=== PATIENT | female | born 1950 | race African-American/Black ===

== ENCOUNTER 2017-07-12 09:30 | Inpatient (IN) | payer MEDICARE ==
[2017-07-12 10:31] VITALS: BMI 41.9
[2017-07-20] MEDS ORDERED: Fentanyl 100 MCG/2 ML VIAL ONE ×4 (12:06→15:53)
[2017-07-20] MEDS ORDERED: Midazolam HCl 2 mg/2 ml Vial ONE (12:06)
[2017-07-20] MEDS ORDERED: ADMIXTURE FEE IVPB SCH (12:15)
[2017-07-20] MEDS ORDERED: SODIUM CHLORIDE IVPB SCH (12:15)
[2017-07-20] MEDS ORDERED: VANCOMYCIN HCL IVPB SCH (12:15)
[2017-07-20] MEDS ORDERED: traMADol HCl 50 MG TAB PO PRN (12:20)
[2017-07-20] MEDS ORDERED: Zolpidem Tartrate 5 MG TAB PO PRN (12:20)
[2017-07-20] MEDS ORDERED: Promethazine HCl 25 MG/ML VIAL IM PRN ×2 (12:20→15:19)
[2017-07-20] MEDS ORDERED: Fentanyl 100 MCG/2 ML VIAL SLOW IVP PRN (12:20)
[2017-07-20] MEDS ORDERED: Ropivacaine 0.2% 550 ML 550 ML NERVE BLCK SCH (12:20)
[2017-07-20] MEDS ORDERED: Ondansetron HCl/PF 4 MG/2 ML Vial IVP PRN ×2 (12:20→15:19)
[2017-07-20] MEDS ORDERED: HYDROcodone/Acetaminophen 10/325 mg Tablet PO PRN (12:20)
[2017-07-20] MEDS ORDERED: PHENYLEPHRINE-NS 100 MCG/ML 10 ML SYRINGE ONE (13:23)
[2017-07-20] MEDS ORDERED: Ondansetron HCl/PF 4 MG/2 ML Vial ONE (13:23)
[2017-07-20] MEDS ORDERED: ePHEDrine/0.9% NaCl/PF SYRINGE 50 mg/10 ml ONE (13:23)
[2017-07-20] MEDS ORDERED: diphenhydrAMINE HCl 50 MG/ML 1 ML VIAL ONE (13:23)
[2017-07-20] MEDS ORDERED: Lidocaine 1% PF 5 ML VIAL ONE (13:23)
[2017-07-20] MEDS ORDERED: Propofol 200 MG/20 ML VIAL ONE (13:23)
[2017-07-20] MEDS ORDERED: Torsemide 20 MG TAB PO SCH (14:45)
[2017-07-20] MEDS ORDERED: Gabapentin 300 MG CAP PO PRN (14:45)
[2017-07-20] MEDS ORDERED: Acetaminophen 1,000 MG in Premix Bag 1 BAG IVPB SCH (15:15)
[2017-07-20] MEDS ORDERED: Promethazine HCl 25 MG/ML VIAL SLOW IVP PRN (15:19)
[2017-07-20] MEDS ORDERED: Ketorolac Tromethamine 30 MG/ML VIAL ONE (15:26)
--- NOTE | 2017-07-20 16:23 | RAD ---
LEFT KNEE TWO VIEWS: History: Post op evaluation. IMPRESSION: Patient is post total knee replacement. The prosthetic components appear in good position and alignm ent. Post op changes are noted. POS: DARIEL
--- NOTE | 2017-07-20 17:19 | OP ---
DATE OF SURGERY: 07/20/2017 PREOPERATIVE DIAGNOSIS: Left knee osteoarthritis. POSTOPERATIVE DIAGNOSIS: Left knee osteoarthritis. SURGICAL PROCEDURE: Left total knee arthroplasty. ANESTHESIA: General. SURGEON: Salbador Guadarrama M.D. RUG CLEANER HAND: Aneesh Garrett PA-C TOURNIQUET TIME: Approximately 75 minutes at 350 mmHg. ESTIMATED BLOOD LOSS: 50 mL IMPLANTS: DePuy Sigma system was used with a size 4 narrow femur, size 3 tibia, and 8 mm poly inser t, and a 35 mm all-poly patellar button. COMPLICATIONS: None. DRAINS: None. SPECIMEN: None. OUTCOME: Satisfactory. INDICATIONS: Patient is a pleasant 67-year-old lady, who is now status post right total knee arthro plasty and doing very well from the surgery. She has known severe medial compartment osteoarthritis on the left side as well in addition to the anterior compartment degenerative changes. After discu ssion with patient including risks and benefits, we have decided to proceed with left total knee art hroplasty. DESCRIPTION OF PROCEDURE: The patient was brought to the operating room and a timeout performed and then general anesthesia induced. The patient did have a nerve block inserted prior to surgery. Ne xt, the patient was positioned supine on the OR table and then a sterile prep and drape performed of the left lower extremity. The limb was exsanguinated with Esmarch bandage, tourniquet inflated to 350 mmHg. A midline anterior knee incision was made followed by medial parapatellar arthrotomy. Th e patella was inverted and remnants of the prepatellar fat pad and meniscus were excised along with the ACL. Next, a step drill was used to obtain a starting point of the distal femur. Intramedullar y alignment then performed to pin the initial distal femoral cutting jig to the anterior femur. Nex t, a distal femoral cut performed. This was followed by pinning of the sizing block to the distal f emur and it was sized to a size 4 narrow. This was then followed by insertion of the four-in-one cu tting block. Final cuts were then performed with an excellent resection and good alignment. Next, intramedullary alignment again used on the tibial cut, a step drill was used to obtain access to the tibial canal. This was then followed by insertion of the intramedullary jig and then the cutting b lock was pinned to the anterior tibia. The cut was performed. This was sized to a size 3. A size 3 trial was then applied to the top of the tibia and then further prepared using the reamer and cruc iform punch. The trial was left in place and then the femoral trial applied to the distal femur. A n 8 mm poly insert provided excellent rollback on flexion and good stability. Next, the patella was resurfaced freehand and sized to a size 35. Trial components were then removed from the knee. The knee was irrigated with 3 liters of normal saline using Pulsavac and then cement mixed, and the tib ial tray was cemented in place first followed by cementing of the femoral component. The final poly was then inserted into the knee and the knee was brought into full extension and the patellar button was cemented in place. Excess cement was removed. Once the cement had fully cured, wound closure performed. This was done with #2 Vicryl for the quadriceps mechanism, 2-0 Vicryl sub cutaneously, and sammy for the skin. A Xeroform gauze, Webril, and Philip wrap dressing was applied to the knee. Tourniquet was let down and the patient was transferred to recovery room in stable con dition. There were no complications. She tolerated the procedure well.
[2017-07-20] MEDS: Ketorolac Tromethamine 30 MG/ML VIAL IVP SCH (17:40)
[2017-07-20] MEDS ORDERED: Dextrose 5% in Water 1,000 ML IV PRN (18:04)
[2017-07-20] MEDS ORDERED: Dextrose 50% Abboject 50 ML SYRINGE SLOW IVP PRN (18:04)
--- NOTE | 2017-07-20 18:07 | PDOC.PN ---
- Subjective Encounter Start Date: 07/20/17 Encounter Start Time: 18:06 Pt seen for management of medical comorbidities, including hypertension. Sleepy but arousable. denies chest pain, shortness of breath, fevers or chills. Pain is controlled. - Objective MAR Reviewed: Yes Vital Signs & Weight: Vital Signs (12 hours) Temp Pulse Resp BP Pulse Ox 07/20/17 16:35 97.7 F 89 18 155/72 H 100 Weight Weight 260 lb Additional Labs: Accuchecks 07/20/17 17:43 POC Glucose 202 H Phys Exam - Physical Examination Obese HEENT: moist MMs, sclera anicteric Neck: supple Respiratory: no wheezing, no rales, no rhonchi, clear to auscultation bilateral Cardiovascular: RRR, no rub Gastrointestinal: soft, positive bowel sounds Musculoskeletal: pulses present s/p L knee surgery Neurological: moves all 4 limbs Psychiatric: normal affect Skin: no rash Dx/Plan (1) HTN (hypertension) Code(s): I10 - ESSENTIAL (PRIMARY) HYPERTENSION Status: Chronic (2) DM2 (diabetes mellitus, type 2) Status: Chronic (3) GERD (gastroesophageal reflux disease) Code(s): K21.9 - GASTRO-ESOPHAGEAL REFLUX DISEASE WITHOUT ESOPHAGITIS Status: Chronic (4) Arthritis Code(s): M19.90 - UNSPECIFIED OSTEOARTHRITIS, UNSPECIFIED SITE Status: Chronic - Plan * . Monitor vital signs, titrate antihypertensives as needed. Start PRN IV hydralazine. Start accuchecks, insulin sliding scale. Continue PPI. s/p L knee surgery. DVT prophylaxis and pain management per orthopedic surgery. Code status: Full. Review of Systems - Review of Systems Constitutional: negative: Fever, Chills, Sweats, Weakness, Malaise Respiratory: negative: Cough, Dry, Shortness of Breath, Hemoptysis, SOB with Excertion, Pleuritic Pain, Sputum, Wheezing Cardiovascular: negative: Chest Pain, Palpitations, Orthopnea, Paroxysmal Noc. Dyspnea, Edema, Light Headedness Gastrointestinal: negative: Nausea, Vomiting, Abdominal Pain, Diarrhea, Constipation, Melena, Hematochezia - Medications/Allergies Allergies/Adverse Reactions: Allergies Allergy/AdvReac Type Severity Reaction Status Date / Time adhesive tape Allergy Verified 07/12/17 10:31 erythromycin base Allergy Verified 09/12/17 10:31 rofecoxib [From Vioxx] Allergy Verified 07/12/17 10:31 Medications: Current Medications Hydrocodone Bitart/Acetaminophen ([place] 10/325) 1 tab PO Q4H PRN PRN Reason: Pain (1-3) Hydrocodone Bitart/Acetaminophen ([place] 10/325) 2 tab PO Q4H PRN PRN Reason: PAIN (4-6) Aspirin (Ecotrin) 81 mg PO DAILY [facility] Cholecalciferol (Vitamin D3) 5,000 units PO DAILY [facility] Dextrose/Water (Dextrose 50%) 25 gm SLOW IVP PRN PRN PRN Reason: Hypoglycemia Duloxetine HCl (Cymbalta) 60 mg PO HS [facility] Fentanyl (Sublimaze) 50 mcg SLOW IVP Q1H PRN PRN Reason: BREAKTHROUGH PAIN Last Admin: 07/20/17 17:42 Dose: 50 mcg Fentanyl (Pacu-Sublimaze) 50 mcg SLOW IVP Q10MIN PRN PRN Reason: Moderate to Severe Pain (6-10) Stop: 07/20/17 18:19 Gabapentin (Neurontin) 300 mg PO HSPRN PRN PRN Reason: Pain Glucagon (Glucagon) 1 mg IM PRN PRN PRN Reason: Hypoglycemia Hydralazine HCl (Apresoline) 10 mg SLOW IVP Q6H PRN PRN Reason: SBP Greater Than 170 Hydrochlorothiazide (Hydrochlorothiazide) 25 mg PO HS [facility] Vancomycin HCl 1.5 gm/Miscellaneous Medication 1 each/ Sodium Chloride 300 mls @ 200 mls/hr IVPB WILLCALL [facility] Stop: 07/20/17 21:00 Ropivacaine (Ropivacaine 0.2% 550 Ml) 550 mls @ 0 mls/hr NERVE BLCK INF [facility] PRN Reason: As Directed Acetaminophen 1,000 mg/ Device 100 mls @ 400 mls/hr IVPB ONE [facility] Stop: 07/21/17 16:00 Dextrose/Water (D5w) 1,000 mls @ 0 mls/hr IV .Q0M PRN; As Directed PRN Reason: Hypoglycemia Insulin Human Lispro (Humalog) 0 units SC .MILD SLIDING SCALE PRN PRN Reason: Mild Correctional Scale Ketorolac Tromethamine (Toradol) 15 mg IVP Q6HR [facility] Stop: 07/22/17 12:01 Last Admin: 07/20/17 17:40 Dose: 15 mg Metformin HCl (Glucophage Xr) 500 mg PO QAM-WM [facility] Multivitamins (Multivit, Chewable Sf) 1 tab PO DAILY [facility] Olmesartan (Benicar) 40 mg PO HS [facility] Ondansetron HCl (Zofran) 4 mg IVP Q6H PRN PRN Reason: Nausea/Vomiting Ondansetron HCl (Pacu-Zofran) 4 mg IVP ONE PRN PRN Reason: Nausea/Vomiting Stop: 07/20/17 18:19 Pantoprazole Sodium (Protonix) 40 mg PO DAILY [facility] Multivit/Folic Acid/Iron ( Vitamin) 1 tab PO DAILY [facility] Promethazine HCl (Phenergan) 12.5 mg IM Q4H PRN PRN Reason: Nausea Promethazine HCl (Pacu-Phenergan) 6.25 mg SLOW IVP ONE PRN PRN Reason: Nausea/Vomiting Stop: 07/20/17 18:19 Promethazine HCl (Pacu-Phenergan) 6.25 mg IM ONE PRN PRN Reason: Nausea/Vomiting Stop: 07/20/17 18:19 Sodium Chloride (Flush - Normal Saline) 10 ml IVF PRN PRN PRN Reason: Saline Flush Torsemide (Demadex) 20 mg PO WILLCALL [facility] Tramadol HCl (Ultram) 50 mg PO Q6H PRN PRN Reason: Mild Pain (1-3) Tramadol HCl (Ultram) 100 mg PO Q6H PRN PRN Reason: Moderate Pain 4-6 Zolpidem Tartrate (Ambien) 5 mg PO HSPRN PRN PRN Reason: Insomnia
[2017-07-20] MEDS: HYDROcodone/Acetaminophen 10/325 mg Tablet PO PRN (20:54)
[2017-07-20] MEDS: Hydrochlorothiazide 25 MG TAB PO SCH (20:55)
[2017-07-20] MEDS ORDERED: Non-Formulary Item 1 EACH (Olmesartan/Hydrochlorothiazide [Benicar Hct] 1 TABLET) PO SCH (21:00)
[2017-07-21] MEDS: Ketorolac Tromethamine 30 MG/ML VIAL IVP SCH ×5 (00:50→23:53)
[2017-07-21] MEDS: HYDROcodone/Acetaminophen 10/325 mg Tablet PO PRN ×4 (05:43→21:13)
[2017-07-21 07:29] LABS: #Eosinphils 0.2 thou/uL (0.0-0.7); #Lymphocytes 1.4 thou/uL (1.20-3.40); #Monocytes 0.5 thou/uL (0.11-0.59); #Neutrophils 4.6 thou/uL (1.40-6.50); %Basophils 0.5 % (0.0-1.0); %Eosinophils 3.6 % (0.0-10.0); %Lymphocytes 20.6 % (21.0-51.0); %Monocytes 7.1 % (0.0-10.0); Hematocrit 28.4 % (36.0-47.0); Mean Platelet Volume 7.1 fL (7.4-10.4); White Blood Cell (WBC) Count 6.7 thou/uL (4.8-10.8)
[2017-07-21] MEDS: Aspirin 81 mg Enteric Coated Tablet PO SCH (09:03)
[2017-07-21] MEDS: metFORMIN HCl XR 500 MG TAB PO SCH (09:03)
[2017-07-21] MEDS: Prenatal Vitamin 1 TAB PO SCH (09:04)
[2017-07-21] MEDS: Multivit, Chewable SF 1 TAB PO SCH (09:04)
[2017-07-21] MEDS ORDERED: Polyethylene Glycol 3350 17 GM Packet PO PRN (12:07)
[2017-07-21] MEDS ORDERED: Bisacodyl 10 MG SUPP PR PRN (12:07)
[2017-07-21] MEDS ORDERED: Senokot S 8.6-50 MG TAB PO SCH (12:15)
[2017-07-21] MEDS: HumaLOG 300 UNITS/3 ML VIAL SC PRN ×2 (12:18→17:14)
--- NOTE | 2017-07-21 13:10 | PDOC.PN ---
- Subjective Encounter Start Date: 07/21/17 Encounter Start Time: 12:00 Patient seen and examined. No new complaints. No overnight events. Pain controlled. Sitting on chair - Objective MAR Reviewed: Yes Vital Signs & Weight: Vital Signs (12 hours) Temp Pulse Resp BP Pulse Ox 07/21/17 11:40 98.1 F 82 18 129/76 100 07/21/17 08:15 98.4 F 79 12 127/63 99 07/21/17 08:00 98.4 F 79 12 99 07/21/17 04:00 98.0 F 83 16 121/71 97 Weight Weight 260 lb I&O: 07/20/17 07/21/17 07/22/17 06:59 06:59 06:59 Intake Total 1506 Output Total 625 Balance 881 Result Diagrams: 07/21/17 07:13 Additional Labs: Accuchecks 07/21/17 07/21/17 07/20/17 11:18 05:26 20:30 POC Glucose 237 H 194 H 179 H 07/20/17 17:43 POC Glucose 202 H Phys Exam - Physical Examination Constitutional: NAD Respiratory: no wheezing, no rhonchi Cardiovascular: RRR, no rub Gastrointestinal: soft, non-tender, positive bowel sounds Musculoskeletal: no edema Neurological: moves all 4 limbs Psychiatric: A&O x 3 Dx/Plan (1) DM2 (diabetes mellitus, type 2) Status: Chronic (2) GERD (gastroesophageal reflux disease) Code(s): K21.9 - GASTRO-ESOPHAGEAL REFLUX DISEASE WITHOUT ESOPHAGITIS Status: Chronic (3) HTN (hypertension) Code(s): I10 - ESSENTIAL (PRIMARY) HYPERTENSION Status: Chronic (4) Morbid obesity with BMI of 40.0-44.9, adult Code(s): E66.01 - MORBID (SEVERE) OBESITY DUE TO EXCESS CALORIES; Z68.41 - BODY MASS INDEX (BMI) 40.0-44.9, ADULT Status: Chronic - Plan cont current plan of care, PT/OT, protective services social worker, DVT proph w/SCDs * Cont current meds as below * Add stool softener * Cont sliding scale * Torsemid PRN Review of Systems - Review of Systems Constitutional: negative: Fever, Chills, Sweats, Weakness, Malaise, Other Cardiovascular: negative: Chest Pain, Palpitations, Orthopnea, Paroxysmal Noc. Dyspnea, Edema, Light Headedness, Other Gastrointestinal: negative: Nausea, Vomiting, Abdominal Pain, Diarrhea, Constipation, Melena, Hematochezia, Other Neurological: negative: Weakness, Numbness, Incoordination, Change in Speech, Confusion, Seizures, Other - Medications/Allergies Allergies/Adverse Reactions: Allergies Allergy/AdvReac Type Severity Reaction Status Date / Time adhesive tape Allergy Verified 07/12/17 10:31 erythromycin base Allergy Verified 07/12/17 10:31 rofecoxib [From Vioxx] Allergy Verified 07/12/17 10:31 Medications: Current Medications Hydrocodone Bitart/Acetaminophen ([place] 10/325) 1 tab PO Q4H PRN PRN Reason: Pain (1-3) Hydrocodone Bitart/Acetaminophen ([place] 10/325) 2 tab PO Q4H PRN PRN Reason: PAIN (4-6) Last Admin: 07/21/17 11:08 Dose: 2 tab Aspirin (Ecotrin) 81 mg PO DAILY [facility]S [facility] Last Admin: 07/21/17 09:03 Dose: 81 mg Bisacodyl (Dulcolax) 10 mg [place] DAILYPRN PRN PRN Reason: Constipation Cholecalciferol (Vitamin D3) 5,000 units PO DAILY [facility] 234 BEDS AT [facility] Last Admin: 07/21/17 09:03 Dose: 5,000 units Dextrose/Water (Dextrose 50%) 25 gm SLOW IVP PRN PRN PRN Reason: Hypoglycemia Duloxetine HCl (Cymbalta) 60 mg PO HS [facility] 234 B[facility]S [facility] Last Admin: 07/20/17 20:56 Dose: 60 mg Fentanyl (Sublimaze) 50 mcg SLOW IVP Q1H PRN PRN Reason: BREAKTHROUGH PAIN Last Admin: 07/20/17 17:42 Dose: 50 mcg Gabapentin (Neurontin) 300 mg PO HSPRN PRN PRN Reason: Pain Glucagon (Glucagon) 1 mg IM PRN PRN PRN Reason: Hypoglycemia Hydralazine HCl (Apresoline) 10 mg SLOW IVP Q6H PRN PRN Reason: SBP Greater Than 170 Hydrochlorothiazide (Hydrochlorothiazide) 25 mg PO HS [facility] 234 [facility]S [facility] Last Admin: 07/20/17 20:55 Dose: 25 mg Ropivacaine (Ropivacaine 0.2% 550 Ml) 550 mls @ 0 mls/hr NERVE BLCK INF [facility] 234 BEDS AT [facility] PRN Reason: As Directed Acetaminophen 1,000 mg/ Device 100 mls @ 400 mls/hr IVPB ONE [facility] 234 BEDS AT [facility] Stop: 07/21/17 16:00 Dextrose/Water (D5w) 1,000 mls @ 0 mls/hr IV .Q0M PRN; As Directed PRN Reason: Hypoglycemia Insulin Human Lispro (Humalog) 0 units SC .MILD SLIDING SCALE PRN PRN Reason: Mild Correctional Scale Last Admin: 07/21/17 12:18 Dose: 3 unit Ketorolac Tromethamine (Toradol) 15 mg IVP Q6HR [facility] 234 BEDS AT [facility] Stop: 07/22/17 12:01 Last Admin: 07/21/17 11:08 Dose: 15 mg Metformin HCl (Glucophage Xr) 500 mg PO QAM-WM [facility] 234 BEDS AT [facility] Last Admin: 07/21/17 09:03 Dose: 500 mg Multivitamins (Multivit, Chewable Sf) 1 tab PO DAILY [facility] 234 B[facility]S [facility] Last Admin: 07/21/17 09:04 Dose: 1 tab Olmesartan (Benicar) 40 mg PO HS [facility] 234 B[facility]S [facility] Last Admin: 07/20/17 20:56 Dose: 40 mg Ondansetron HCl (Zofran) 4 mg IVP Q6H PRN PRN Reason: Nausea/Vomiting Pantoprazole Sodium (Protonix) 40 mg PO DAILY [facility] 234 B[facility]S AT [facility] Last Admin: 07/21/17 09:04 Dose: 40 mg Polyethylene Glycol (Miralax) 17 gm PO DAILY PRN PRN Reason: Constipation Multivit/Folic Acid/Iron ( Vitamin) 1 tab PO DAILY [facility] 234 B[facility]S [facility] Last Admin: 07/21/17 09:04 Dose: 1 tab Promethazine HCl (Phenergan) 12.5 mg IM Q4H PRN PRN Reason: Nausea Senna/Docusate Sodium (Senokot S) 1 tab PO BID [facility] 234 BEDS AT [facility] Senna/Docusate Sodium (Senokot S) 1 tab PO NOW [facility]CLUDE 234 BEDS AT [facility] Stop: 07/21/17 14:15 Sodium Chloride (Flush - Normal Saline) 10 ml IVF PRN PRN PRN Reason: Saline Flush Torsemide (Demadex) 20 mg PO [place]CALL [facility] 234 BEDS AT [facility] Tramadol HCl (Ultram) 50 mg PO Q6H PRN PRN Reason: Mild Pain (1-3) Tramadol HCl (Ultram) 100 mg PO Q6H PRN PRN Reason: Moderate Pain 4-6 Zolpidem Tartrate (Ambien) 5 mg PO HSPRN PRN PRN Reason: Insomnia
[2017-07-21] MEDS: Senokot S 8.6-50 MG TAB PO SCH (21:13)
[2017-07-21] MEDS: Hydrochlorothiazide 25 MG TAB PO SCH (21:13)
[2017-07-21] MEDS: diphenhydrAMINE HCl 25 MG CAP PO PRN (23:52)
[2017-07-22 06:31] LABS: #Eosinphils 0.3 thou/uL (0.0-0.7); #Lymphocytes 1.1 thou/uL (1.20-3.40); #Monocytes 0.5 thou/uL (0.11-0.59); #Neutrophils 4.8 thou/uL (1.40-6.50); %Basophils 0.5 % (0.0-1.0); %Eosinophils 4.6 % (0.0-10.0); %Lymphocytes 15.9 % (21.0-51.0); Mean Platelet Volume 7.5 fL (7.4-10.4); Red Blood Cell (RBC) Count 2.84 mill/uL (4.20-5.40); White Blood Cell (WBC) Count 6.7 thou/uL (4.8-10.8)
[2017-07-22] MEDS: Ketorolac Tromethamine 30 MG/ML VIAL IVP SCH ×2 (06:43→11:35)
[2017-07-22] MEDS: metFORMIN HCl XR 500 MG TAB PO SCH (08:05)
[2017-07-22] MEDS: Aspirin 81 mg Enteric Coated Tablet PO SCH (08:05)
[2017-07-22] MEDS: Prenatal Vitamin 1 TAB PO SCH (08:05)
[2017-07-22] MEDS: Senokot S 8.6-50 MG TAB PO SCH ×2 (08:06→21:13)
[2017-07-22] MEDS: HYDROcodone/Acetaminophen 10/325 mg Tablet PO PRN ×3 (08:06→23:58)
[2017-07-22] MEDS: Multivit, Chewable SF 1 TAB PO SCH (08:12)
[2017-07-22] MEDS: diphenhydrAMINE HCl 25 MG CAP PO PRN ×2 (18:04→23:59)
--- NOTE | 2017-07-22 19:33 | PDOC.PN ---
- Subjective Encounter Start Date: 07/22/17 Encounter Start Time: 09:30 Patient seen and examined. No new complaints. No overnight events - Objective MAR Reviewed: Yes Vital Signs & Weight: Vital Signs (12 hours) Temp Pulse Resp BP BP Pulse Ox 07/22/17 17:24 98 F 83 18 116/71 95 07/22/17 12:00 97.9 F 82 14 155/78 H 96 07/22/17 08:00 98.4 F 84 16 157/79 H 93 L Weight Weight 260 lb I&O: 07/21/17 07/22/17 07/23/17 06:59 06:59 06:59 Intake Total 1506 2370 Output Total 625 850 Balance 881 1520 Result Diagrams: 07/22/17 05:57 Additional Labs: Accuchecks 07/22/17 07/22/17 07/22/17 17:01 12:06 05:21 POC Glucose 202 H 211 H 170 H 07/21/17 07/21/17 19:37 15:57 POC Glucose 133 H 225 H Phys Exam - Physical Examination Constitutional: NAD Respiratory: no wheezing, no rhonchi Cardiovascular: RRR, no rub Gastrointestinal: soft, non-tender, positive bowel sounds Musculoskeletal: no edema Neurological: non-focal, moves all 4 limbs Dx/Plan (1) DM2 (diabetes mellitus, type 2) Status: Chronic (2) GERD (gastroesophageal reflux disease) Code(s): K21.9 - GASTRO-ESOPHAGEAL REFLUX DISEASE WITHOUT ESOPHAGITIS Status: Chronic (3) HTN (hypertension) Code(s): I10 - ESSENTIAL (PRIMARY) HYPERTENSION Status: Chronic (4) Morbid obesity with BMI of 40.0-44.9, adult Code(s): E66.01 - MORBID (SEVERE) OBESITY DUE TO EXCESS CALORIES; Z68.41 - BODY MASS INDEX (BMI) 40.0-44.9, ADULT Status: Chronic - Plan cont current plan of care, PT/OT, incentive spirometry, out of bed/ambulate, DVT proph w/SCDs * Cont current meds as below * Cont insulin sliding scale * Will follow Review of Systems - Review of Systems Constitutional: negative: Fever, Chills, Sweats, Weakness, Malaise, Other Respiratory: negative: Cough, Dry, Shortness of Breath, Hemoptysis, SOB with Excertion, Pleuritic Pain, Sputum, Wheezing Cardiovascular: negative: Chest Pain, Palpitations, Orthopnea, Paroxysmal Noc. Dyspnea, Edema, Light Headedness, Other Gastrointestinal: negative: Nausea, Vomiting, Abdominal Pain, Diarrhea, Constipation, Melena, Hematochezia, Other - Medications/Allergies Allergies/Adverse Reactions: Allergies Allergy/AdvReac Type Severity Reaction Status Date / Time adhesive tape Allergy Verified 07/12/17 10:31 erythromycin base Allergy Verified 07/12/17 10:31 rofecoxib [From Vioxx] Allergy Verified 07/12/17 10:31 Medications: Current Medications Hydrocodone Bitart/Acetaminophen ([place] 10/325) 1 tab PO Q4H PRN PRN Reason: Pain (1-3) Hydrocodone Bitart/Acetaminophen ([place] 10/325) 2 tab PO Q4H PRN PRN Reason: PAIN (4-6) Last Admin: 07/22/17 15:04 Dose: 2 tab Aspirin (Ecotrin) 81 mg PO DAILY [facility] Last Admin: 07/22/17 08:05 Dose: 81 mg Bisacodyl (Dulcolax) 10 mg [place] DAILYPRN PRN PRN Reason: Constipation Cholecalciferol (Vitamin D3) 5,000 units PO DAILY [facility] Last Admin: 07/22/17 08:05 Dose: 5,000 units Dextrose/Water (Dextrose 50%) 25 gm SLOW IVP PRN PRN PRN Reason: Hypoglycemia Diphenhydramine HCl (Benadryl) 25 mg PO Q6H PRN PRN Reason: Itching & Insomnia Last Admin: 07/22/17 18:04 Dose: 25 mg Duloxetine HCl (Cymbalta) 60 mg PO HS [facility] Last Admin: 07/21/17 21:13 Dose: 60 mg Fentanyl (Sublimaze) 50 mcg SLOW IVP Q1H PRN PRN Reason: BREAKTHROUGH PAIN Last Admin: 07/20/17 17:42 Dose: 50 mcg Gabapentin (Neurontin) 300 mg PO HSPRN PRN PRN Reason: Pain Glucagon (Glucagon) 1 mg IM PRN PRN PRN Reason: Hypoglycemia Hydralazine HCl (Apresoline) 10 mg SLOW IVP Q6H PRN PRN Reason: SBP Greater Than 170 Hydrochlorothiazide (Hydrochlorothiazide) 25 mg PO [facility] Last Admin: 07/21/17 21:13 Dose: 25 mg Ropivacaine (Ropivacaine 0.2% 550 Ml) 550 mls @ 0 mls/hr NERVE BLCK INF [facility] PRN Reason: As Directed Dextrose/Water (D5w) 1,000 mls @ 0 mls/hr IV .Q0M PRN; As Directed PRN Reason: Hypoglycemia Insulin Human Lispro (Humalog) 0 units SC .MILD SLIDING SCALE PRN PRN Reason: Mild Correctional Scale Last Admin: 07/21/17 17:14 Dose: 3 unit Metformin HCl (Glucophage Xr) 500 mg PO QAM-WM [facility] Last Admin: 07/22/17 08:05 Dose: 500 mg Multivitamins (Multivit, Chewable Sf) 1 tab PO DAILY [facility] Last Admin: 07/22/17 08:12 Dose: 1 tab Olmesartan (Benicar) 40 mg PO HS [facility] Last Admin: 07/21/17 21:13 Dose: 40 mg Ondansetron HCl (Zofran) 4 mg IVP Q6H PRN PRN Reason: Nausea/Vomiting Pantoprazole Sodium (Protonix) 40 mg PO DAILY [facility] Last Admin: 07/22/17 08:05 Dose: 40 mg Polyethylene Glycol (Miralax) 17 gm PO DAILY PRN PRN Reason: Constipation Multivit/Folic Acid/Iron ( Vitamin) 1 tab PO DAILY [facility] Last Admin: 07/22/17 08:05 Dose: 1 tab Promethazine HCl (Phenergan) 12.5 mg IM Q4H PRN PRN Reason: Nausea Senna/Docusate Sodium (Senokot S) 1 tab PO BID [facility] Last Admin: 07/22/17 08:06 Dose: 1 tab Sodium Chloride (Flush - Normal Saline) 10 ml IVF PRN PRN PRN Reason: Saline Flush Torsemide (Demadex) 20 mg PO [facility] Tramadol HCl (Ultram) 50 mg PO Q6H PRN PRN Reason: Mild Pain (1-3) Tramadol HCl (Ultram) 100 mg PO Q6H PRN PRN Reason: Moderate Pain 4-6 Zolpidem Tartrate (Ambien) 5 mg PO HSPRN PRN PRN Reason: Insomnia
[2017-07-22] MEDS: Hydrochlorothiazide 25 MG TAB PO SCH (21:13)
[2017-07-22] MEDS: traMADol HCl 50 MG TAB PO PRN (21:14)
[2017-07-22] MEDS: HumaLOG 300 UNITS/3 ML VIAL SC PRN (21:24)
[2017-07-23] MEDS: traMADol HCl 50 MG TAB PO PRN ×2 (03:28→09:51)
[2017-07-23] MEDS: HYDROcodone/Acetaminophen 10/325 mg Tablet PO PRN (06:22)
[2017-07-23] MEDS: diphenhydrAMINE HCl 25 MG CAP PO PRN (06:22)
[2017-07-23] MEDS: HumaLOG 300 UNITS/3 ML VIAL SC PRN (06:30)
[2017-07-23] MEDS: Prenatal Vitamin 1 TAB PO SCH (09:51)
[2017-07-23] MEDS: metFORMIN HCl XR 500 MG TAB PO SCH (09:51)
[2017-07-23] MEDS: Senokot S 8.6-50 MG TAB PO SCH (09:52)
[2017-07-23] MEDS: Multivit, Chewable SF 1 TAB PO SCH (09:56)
[2017-07-23 12:22] VITALS: BP 146/78; TEMP 97.8
--- NOTE | 2017-07-26 11:29 | DIS ---
DATE OF ADMISSION: 07/20/2017 DATE OF DISCHARGE: 07/23/2017 PREOPERATIVE DIAGNOSIS: Left knee osteoarthritis. DISCHARGE DIAGNOSIS: Left knee osteoarthritis. PROCEDURE: The patient underwent a left total knee arthroplasty. HOSPITAL COURSE: Hospital stay was unremarkable. The patient was admitted to [place] [id number] where she wor ked with staff, physical therapy, occupational therapy, and progressed fairly well. By postoperativ e day #3, she was ready to be discharged. DISCHARGE CONDITION: Good/stable. DISPOSITION: [facility] facility for further rehabilitation and care. FOLLOWUP: Followup would be in 10-14 days, sooner if there are problems and/or concerns. [facility] in 10-14 days also. DISCHARGE MEDICATIONS: Given with usage instructions.
== END 2017-07-23 12:28 | DRG 470 ==
LOC: SJJU 07-20 10:38 → SURG B 07-20 16:13
PROVIDERS: ADMIT Orthopaedic Surgery; ATTEND Orthopaedic Surgery
PROC: 0SRD0J9 Replacement of Left Knee Joint with Synthetic Substitute, Cemented, Open Approach (ICD-10-PCS; principal; 2017-07-20)
PROC: 3E0T3CZ (ICD-10-PCS; 2017-07-20)
DX: M17.12 Unilateral primary osteoarthritis, left knee (principal); I11.0 Hypertensive heart disease with heart failure; Z68.41 Body mass index [BMI] 40.0-44.9, adult; I50.32 Chronic diastolic (congestive) heart failure; E11.9 Type 2 diabetes mellitus without complications; F32.9 Major depressive disorder, single episode, unspecified; B35.4 Tinea corporis; Z96.651 Presence of right artificial knee joint; K21.9 Gastro-esophageal reflux disease without esophagitis; E66.01 Morbid (severe) obesity due to excess calories; Z79.01 Long term (current) use of anticoagulants; Z79.84 Long term (current) use of oral hypoglycemic drugs; Z79.891 Long term (current) use of opiate analgesic; G47.33 Obstructive sleep apnea (adult) (pediatric); M06.9 Rheumatoid arthritis, unspecified; G89.29 Other chronic pain; M54.5 Low back pain
CPT/HCPCS: 36415; 36416; 85025; 86850; 86900; 86901; A4306; C1713; C1776; G8978-GP-CL; G8979-GP-CJ; J0131; J1200; J1885; J2001; J2250; J2405; J2704; J2795; J3010; J3370; J7050

== ENCOUNTER 2018-12-12 10:06 | Outpatient (CLI) | payer MEDICARE | END 2018-12-12 10:07 | disposition home or self-care (01) | LOC: BICMAMMO 10:06 | PROVIDERS: ATTEND Internal Medicine | DX: R92.8 Other abnormal and inconclusive findings on diagnostic imaging of breast (principal); Z80.3 Family history of malignant neoplasm of breast | CPT/HCPCS: 77066; G0279 ==

== ENCOUNTER 2023-10-03 16:06 | Emergency (ER) | payer MEDICARE, OTHER ==
[2023-10-03 18:24] LABS: #Basophils 0.1 thou/uL (0.0-0.2); #Monocytes 0.5 thou/uL (0.11-0.59); #Neutrophils 6.1 thou/uL (1.40-6.50); %Basophils 0.8 % (0.0-1.0); %Eosinophils 10.3 % (0.0-10.0); %Lymphocytes 21.4 % (21.0-51.0); %Monocytes 5.3 % (0.0-10.0); %Neutrophils 61.7 % (42.0-75.0); Hematocrit 33.1 % (36.0-47.0); Hemoglobin 10.6 g/dL (12.0-16.0); Mean Corpuscular Volume 93.8 fl (78.0-98.0); Mean Platelet Volume 10.1 fL (7.4-10.4); Platelet Count 405 10x3/uL (130-400); RBC Distribution Width 12.3 % (11.5-14.5); Red Blood Cell (RBC) Count 3.53 mill/uL (4.20-5.40); White Blood Cell (WBC) Count 9.9 10x3/uL (4.8-10.8)
[2023-10-03 18:56] LABS: ALT (SGPT) 13 U/L (8-55); AST (SGOT) 17 U/L (5-34); Albumin 3.6 g/dL (3.4-4.8); Alkaline Phosphatase 91 U/L (40-110); Anion Gap 14 mmol/L (10-20); BUN (Urea Nitrogen) 25 mg/dL (9.8-20.1); Bilirubin, Total 0.4 mg/dL (0.2-1.2); Calc. Creatinine Clearance 0 mL/min (70-130); Calcium 10.2 mg/dL (7.8-10.44); Carbon Dioxide 30 mmol/L (23-31); Chloride 99 mmol/L (98-107); Estimated GFR 42; Globulin 3.9 g/dL (2.4-3.5); Glucose 111 mg/dL (83-110); Protein, Total 7.5 g/dL (5.8-8.1); Sodium 139 mmol/L (136-145)
[2023-10-03 19:12] LABS: Troponin I 0.012 ng/mL (< 0.028)
[2023-10-03] MEDS ORDERED: HYDROcodone/Acetaminophen 5/325 mg Tablet ONE (20:25)
== END 2023-10-03 22:11 | disposition home or self-care (01) ==
LOC: ERS 16:06
DX: S00.03XA Contusion of scalp, initial encounter (principal); S70.02XA Contusion of left hip, initial encounter; S70.12XA Contusion of left thigh, initial encounter; E11.9 Type 2 diabetes mellitus without complications; I10 Essential (primary) hypertension; Z79.84 Long term (current) use of oral hypoglycemic drugs; Z79.899 Other long term (current) drug therapy; Z79.82 Long term (current) use of aspirin; W19.XXXA Unspecified fall, initial encounter
CPT/HCPCS: 36415; 70450; 71045; 72125; 80053; 84484; 85025; 93005; 96360

== ENCOUNTER 2023-12-19 11:08 | Day surgery (SDC) | payer OTHER ==
[2023-12-15 09:55] VITALS: BMI 35.5
[2023-12-19] MEDS ORDERED: Midazolam HCl 2 mg/2 ml Vial ONE (12:34)
[2023-12-19] MEDS ORDERED: fentaNYL 50 mcg/mL 1 mL Vial ONE (12:35)
[2023-12-19 12:46] LABS: Anion Gap 14 mmol/L (10-20); BUN (Urea Nitrogen) 27 mg/dL (9.8-20.1); Calc. Creatinine Clearance 47 mL/min (70-130); Calcium 10.5 mg/dL (7.8-10.44); Carbon Dioxide 27 mmol/L (23-31); Chloride 100 mmol/L (98-107); Estimated GFR 33; Glucose 81 mg/dL (83-110); Sodium 137 mmol/L (136-145)
[2023-12-19] MEDS ORDERED: PROPOFOL 200 MG/20 ML VIAL ONE (12:59)
[2023-12-19] MEDS ORDERED: Lidocaine 1% PF 5 ML VIAL ONE (12:59)
[2023-12-19] MEDS ORDERED: Ondansetron PF 4 MG/2 ML Vial ONE (12:59)
[2023-12-19] MEDS ORDERED: Dexamethasone 20 MG/5 ML VIAL ONE (12:59)
== END 2023-12-19 14:31 | disposition home or self-care (01) ==
LOC: MRI 11:08
PROVIDERS: ATTEND Orthopaedic Surgery
DX: M54.16 Radiculopathy, lumbar region (principal); I10 Essential (primary) hypertension; E11.40 Type 2 diabetes mellitus with diabetic neuropathy, unspecified; K21.9 Gastro-esophageal reflux disease without esophagitis; G47.33 Obstructive sleep apnea (adult) (pediatric); M40.209 Unspecified kyphosis, site unspecified; Z90.710 Acquired absence of both cervix and uterus; Z90.49 Acquired absence of other specified parts of digestive tract; Z98.890 Other specified postprocedural states; Z79.82 Long term (current) use of aspirin; Z79.899 Other long term (current) drug therapy; Z88.8 Allergy status to other drugs, medicaments and biological substances; Z88.1 Allergy status to other antibiotic agents; Z91.048 Other nonmedicinal substance allergy status
CPT/HCPCS: 72148; 93005; 93010; J1100; J2250; J2405; J2704; J3010